=== PATIENT | male | born 1990 | race Native Hawaiian/Other Pacific Islander ===

== ENCOUNTER 2019-09-29 21:16 | Emergency (ER) | payer OTHER ==
[~2019-09-29] VITALS: Ht 180.3 cm; Wt 75.3 kg
[2019-09-29 22:19] VITALS: BP 154/88; TEMP 97.9
== END 2019-09-29 22:20 | disposition home or self-care (01) ==
LOC: ED 21:16
DX: K14.0 Glossitis (principal); K12.0 Recurrent oral aphthae; F17.210 Nicotine dependence, cigarettes, uncomplicated
CPT/HCPCS: 99282